=== PATIENT | male | born 1965 | race Caucasian/White ===

== ENCOUNTER 2017-09-09 23:39 | Emergency (ER) | payer SELFPAY ==
[~2017-09-09] VITALS: Ht 180.3 cm; Wt 80.2 kg
[~2017-09-09 23:39] MED LIST: (None)3.5 GM OS; AMOXICILLIN500 MG PO; BACTRIM DS1 TAB PO; DARVOCET N-100100 - OR; GENTAMICIN15 ML/BTL OS; KEFLEX500 M1 PO; NAPROSYN500 MG PO; NO HOME MEDS; SEPTRA DS1 TAB OR
[2017-09-10] MEDS ORDERED: STERAPRED DS10 MG PO (00:20)
[2017-09-10 00:54] VITALS: BP 127/80
== END 2017-09-10 01:02 | disposition home or self-care (01) | DRG 607 ==
LOC: ED 23:39
DX: L23.5 Allergic contact dermatitis due to other chemical products (principal); L29.9 Pruritus, unspecified; Y92.009 Unspecified place in unspecified non-institutional (private) residence as the place of occurrence of the external cause

== ENCOUNTER 2017-11-27 01:08 | Emergency (ER) | payer SELFPAY ==
[~2017-11-27] VITALS: Ht 180.3 cm; Wt 77.0 kg
[~2017-11-27 01:08] MED LIST changes: +STERAPRED DS10 MG PO
[2017-11-27] MEDS ORDERED: FLEXERIL PO (02:13)
[2017-11-27] MEDS ORDERED: LORTAB 1010 MG PO (02:13)
[2017-11-27 02:28] VITALS: BP 131/84
== END 2017-11-27 02:28 | disposition home or self-care (01) | DRG 554 ==
LOC: ED 01:08
DX: M19.011 Primary osteoarthritis, right shoulder (principal); M25.511 Pain in right shoulder; M25.411 Effusion, right shoulder; X50.3XXA Overexertion from repetitive movements, initial encounter; Y93.89 Activity, other specified; Y92.009 Unspecified place in unspecified non-institutional (private) residence as the place of occurrence of the external cause

== ENCOUNTER 2020-12-09 15:18 | Emergency (ER) | payer SELFPAY ==
[~2020-12-09] VITALS: Ht 180.3 cm; Wt 68.0 kg
[~2020-12-09 15:18] MED LIST changes: +FLEXERIL PO; +LORTAB 1010 MG PO
[2020-12-09 15:46] LABS: HEMATOCRIT 44.8 % (39.0-50.0); IMMATURE GRANULOCYTES 0.2 % (0.0-5.0); MEAN CELL VOLUME 86.2 fL CALC (80.0-100.0); MEAN CORPUSCULAR HGB 28.8 pG CALC (26.0-32.0); MEAN CORPUSCULAR HGB CONC 33.5 g/dL CAL (32.0-36.0); NEUT# 5.14 thou/uL (1.82-7.42); RED BLOOD COUNT 5.2 mill/uL (4.70-6.10)
[2020-12-09 16:08] LABS: ALBUMIN 3.9 g/dL (3.2-5.0); ALKALINE PHOSPHATASE 90 u/l (38-126); ANION GAP 16 (6-22 (CALC)); BILIRUBIN, TOTAL 0.2 mg/dL (0.0-1.4); BUN 18 mg/dL (9-20); BUN/CREATININE RATIO 16 (12-20 (CALC)); CARBON DIOXIDE 21 mmol/l (22-30); CHLORIDE 107 mmol/l (95-108); CREATININE 1.1 mg/dL (0.7-1.3); GFR > 60 ML/MIN (>=60 (CALC)); GFR FOR AFR.AMER. > 60 ML/MIN (>=60 (CALC)); LIPASE 128 u/l (23-300); POTASSIUM 3.9 mmol/l (3.5-5.1); SGOT/AST 28 u/l (17-59); SODIUM 141 mmol/l (137-146); TOTAL PROTEIN 7.4 g/dL (6.3-8.2)
[2020-12-09 16:17] LABS: ACT PARTIAL THROMBO TIME 21.6 SECONDS (20.0-32.5); PROTHROMBIN TIME 9.8 SECONDS (9.0-12.5)
[2020-12-09 16:45] VITALS: BP 104/71
== END 2020-12-09 16:47 | DRG 565 ==
LOC: ED 15:18
DX: S56.921A Laceration of unspecified muscles, fascia and tendons at forearm level, right arm, initial encounter (principal); S21.111A Laceration without foreign body of right front wall of thorax without penetration into thoracic cavity, initial encounter; S51.811A Laceration without foreign body of right forearm, initial encounter; F17.200 Nicotine dependence, unspecified, uncomplicated; W20.8XXA Other cause of strike by thrown, projected or falling object, initial encounter; Y93.89 Activity, other specified